=== PATIENT | male | born 2000 | race Caucasian/White ===

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

== ENCOUNTER 2018-12-27 20:31 | Emergency (ER) | payer OTHER ==
[~2018-12-27] VITALS: Ht 190.5 cm; Wt 85.0 kg
[2018-12-27 20:36] VITALS: BP 153/76; TEMP 99.1
[2018-12-27 22:00] VITALS: PULSE 82
== END 2018-12-27 22:00 | disposition home or self-care (01) ==
LOC: COL.ER 20:31
DX: S93.402A Sprain of unspecified ligament of left ankle, initial encounter (principal); X50.0XXA Overexertion from strenuous movement or load, initial encounter; Y93.67 Activity, basketball